=== PATIENT | male | born 1945 | race Caucasian/White ===

== ENCOUNTER 2017-03-13 07:52 | Day surgery (SDC) | payer OTHER ==
[2017-03-13] VITALS (11 sets, daily range): BP systolic 120–139; BP diastolic 77–82; PULSE 64–83; RESP 16; TEMP 97.8–98.5; O2SAT 95–97
[~2017-03-13] VITALS: Ht 154.4 cm; Wt 88.5 kg
[~2017-03-13 07:52] MED LIST: ASPI81TA21 PO; BRIL90TA PO; COZA100T PO; GEMF600 PO; GLIM2TAB PO; GLUC1000 PO; IMDU30TA PO; METO100T9 PO; PARO20 PO; SIMV20 PO
[2017-03-13] MEDS ORDERED: IOHEXOL 350 MG/ML 100 ML BTL (for Cath Lab) OTHER ONE (07:53)
[2017-03-13] MEDS ORDERED: IOHEXOL 350 MG/ML 50 ML BTL (for Cath Lab) OTHER ONE (07:53)
[2017-03-13] MEDS: SODIUM CHLOR 0.9% 1000 ML INJ 1,000 ML IV SCH ×2 (08:15→13:00)
[2017-03-13] MEDS ORDERED: LOSA100T PO (08:31)
[2017-03-13] MEDS ORDERED: ASPI81CH CHEW (08:31)
[2017-03-13] MEDS ORDERED: METO25TA6 PO (08:31)
[2017-03-13] MEDS ORDERED: GLIM2TAB PO (08:31)
[2017-03-13] MEDS ORDERED: LEVEMIR SQ ×2 (08:31→08:36)
[2017-03-13] MEDS ORDERED: SIMV20TA PO (08:31)
[2017-03-13] MEDS ORDERED: BRIL90TA PO (08:31)
[2017-03-13] MEDS ORDERED: GEMF600 PO (08:31)
[2017-03-13] MEDS ORDERED: PAXI10TA2 PO (08:31)
[2017-03-13] MEDS ORDERED: NITR0.4S SL (08:31)
[2017-03-13] MEDS ORDERED: ISOS30TA3 PO (08:31)
[2017-03-13 08:43] LABS: AUTOMATED NEUTROPHIL # 1.1 TH/MM3 (1.8-7.7); BASOPHIL % 0.8 % (0.0-2.0); EOSINOPHIL # 0.1 TH/MM3 (0-0.4); EOSINOPHIL % 2.2 % (0.0-4.0); HEMATOCRIT 42.3 % (39.0-51.0); HEMO FLAGS DIFF FINAL; LYMPH % 41.2 % (9.0-44.0); MEAN CELL VOLUME 90.3 FL (80.0-100.0); MEAN CORPUSCULAR HEMOGLOBIN 30.6 PG (27.0-34.0); MEAN CORPUSCULAR HGB CONC 33.9 % (32.0-36.0); MONO % 10.2 % (0.0-8.0); NEUT % 45.6 % (16.0-70.0); PLATELET COUNT 109 TH/MM3 (150-450); RED BLOOD COUNT 4.68 MIL/MM3 (4.50-5.90); RED CELL DISTRIBUTION WIDTH 13.2 % (11.6-17.2); WHITE BLOOD COUNT 2.3 TH/MM3 (4.0-11.0)
[2017-03-13 08:53] LABS: PROTHROMBIN TIME - PATIENT 11.1 SEC (9.8-11.6)
[2017-03-13 08:54] LABS: BICARBONATE 27.5 MEQ/L (21.0-32.0); POTASSIUM 4.3 MEQ/L (3.5-5.1)
[2017-03-13] MEDS ORDERED: HEPARIN-NS/PF INJ 1,000 ML ONE (09:47)
[2017-03-13] MEDS ORDERED: MIDAZOLAM HCL 2 MG/2 ML VIAL ONE (09:48)
[2017-03-13] MEDS ORDERED: VERAPAMIL HCL 5 MG/2 ML VIAL ONE (09:56)
[2017-03-13] MEDS ORDERED: HEPARIN SODIUM - IV 10,000 UNITS/10 ML VIAL ONE (09:57)
[2017-03-13] MEDS ORDERED: NITROGLYCERIN INJ 5 ML ONE (09:58)
[2017-03-13] MEDS ORDERED: MORPHINE SULFATE 4 MG/ML INJ IV PUSH PRN (12:15)
[2017-03-13] MEDS ORDERED: oxyCODONE/ACETAMINOPHEN 10 MG/325 MG TAB PO PRN (12:15)
[2017-03-13] MEDS ORDERED: MISC INFORMATION XX ONE (12:15)
[2017-03-13] MEDS ORDERED: ACETAMINOPHEN 325 MG TAB PO PRN (12:15)
[2017-03-13] MEDS ORDERED: ONDANSETRON HCL 4 MG/2 ML VIAL IVP PRN (12:15)
[2017-03-13] MEDS ORDERED: NITROGLYCERIN 0.4 MG SL 25 TABS/BTL SL PRN (12:15)
[2017-03-13] MEDS ORDERED: oxyCODONE/ACETAMINOPHEN 5 MG/325 MG TAB PO PRN (12:15)
--- NOTE | 2017-03-13 14:39 | EKG ---
Date Performed: 03/13/2017 Time Performed: 08:38:20 PTAGE: 71 years EKG: Sinus rhythm Leftward axis Borderline ECG PREVIOUS TRACING : 01/18/2015 15.17 Compared to prior tracing no significant change DOCTOR: Melanie Mendieta Interpretating Date/Time 03/13/2017 14:37:55
--- NOTE | 2017-03-13 20:44 | MA ---
cc: JESSE STORM DO DATE March 13, 2017 PROCEDURE Left heart catheterization, coronary angiogram, ultrasound-guided radial access, Juancarlos drug-eluting stent (3 x 22) to the RCA, moderate sedation 100 minutes. PREPROCEDURE DIAGNOSIS 1. Unstable angina on multiple anti-anginal medications. 2. Coronary artery disease. POSTPROCEDURE DIAGNOSIS Coronary artery disease/unstable angina status post [place] drug-eluting stent (3 x 22) to the RCA. MEDICATIONS 1. Verapamil 2.5 milligrams. 2. Heparin 8900 units. 3. Nitro 200 micrograms. 4. Versed 1 milligram. 5. Fentanyl 50 micrograms. CONTRAST USED 130 cc. FLUOROSCOPY 32.7 minutes. MODERATE SEDATION 100 minutes. ESTIMATED BLOOD LOSS 20 cc. PROCEDURAL SUMMARY Adi Corral is a pleasant 71-year-old male who sees my partner, Dr. Norris, in the office and was noted to have chest pain with minimal exertion similar to when he needed a stent. Because he is on multiple antianginals already as well as the significance of his chest pain it seemed reasonable to forego a stress test as he is high risk. Risks, benefits and alternatives were explained to him and he consented as such. He was brought to the lab and prepped in the usual sterile fashion. Right radial artery was accessed using a modified Seldinger technique and placement of a 5/6 [place] slender sheath under ultrasound guidance. This was easily aspirated and flushed. A JR-4 was advanced over a J-wire but unable to cross the aortic valve into the left ventricle. JR-4 was used for selective angiography of the right coronary artery. This was exchanged out for a JL-3.5 which was used for selective angiography of the left coronary artery. Please see below for interventional notes. Postprocedure the patient had a radial band placed over his arteriotomy site for hemostasis. The patient left the color laboratory technician cardiovascularly stable. FINDINGS Left main: Normal size vessel with adequate reflux. 10% disease distally. It trifurcates into an LAD ramus and left circumflex. LAD: Normal size vessel with mild luminal irregularities throughout. After the takeoff of the first diagonal there is a 40-50% stenosis in the midportion but this is similar to his previous cardiac catheterization 2 years ago. Ramus: Exceptionally small vessel which seems to be subtotally occluded in the ostium. Left circumflex normal size vessel with mild luminal irregularities throughout the proximal portion. It gives off one major obtuse marginal which has an upper and lower branch and no significant disease throughout. RCA: Normal size vessel with tandem lesions in the midportion of 80 and 90%. There is an RV branch which is subtotally occluded. It comes off in the middle of this disease which looks similar to 2015. He also has a 40% distal PDA as well as a 99% small distal PLV which looks similar to 2015. LVEDP 10. INTERVENTION In comparing his cardiac catheterization from now and 2014 it appears that the only significant is the mid RCA with tandem lesions. Because of this the patient was given heparin with a plan to intervene on the mid RCA. A JR-4 guide was engaged into the right coronary artery. A BMW wire was advanced into the distal portion of the RCA. A compliant balloon (2.5 x 15) was then used to predilate the lesions. This was exchanged out for an [place] drug-eluting stent (3 x 22) which was then placed over both lesions and inflated. A noncompliant balloon (3 x 12) was then used to post dilate the stent. During this the subtotally occluded RV branch was lost. A noncompliant balloon (3.25 x 8) was then used to further dilate the stent for apposition. The lost RV branch I attempted to recannulate with a BMW wire and then a run through wire. I was able to get into the proximal portion of it but unable to further advance my wire as it appears that this is subtotally occluded. I felt that a more aggressive wire had a high-risk perforating this for very little advantage as the patient was chest pain free and hemodynamically stable. The JR-4 guide was removed and exchanged for a pigtail which was advanced into the left ventricle for measurement of left ventricular pressure. IMPRESSION 1. Unstable angina. 2. Coronary artery disease status post Juancarlos drug-eluting stent (3 x 22) to the mid RCA. RECOMMENDATIONS 1. Mr. Corral underwent stenting of his RCA with an [place] drug-eluting stent. Because of this he will continue on his aspirin and Brilinta therapy. 2. We will plan to continue him on his beta clay, Imdur, statin and ARB therapy. 3. He will be watched overnight and if stable discharged in the morning. 4. Upon discharge he will follow up with Dr. Norris in the next few weeks. Thank you for allowing me to see Adi Corral. If there are any questions please do not hesitate to call. Jesse Storm DO VGP/EO /5:47 PM /8:31 PM MTDCk
[2017-03-13] MEDS: TICAGRELOR 90 MG TAB PO SCH (21:19)
[2017-03-13] MEDS ORDERED: ZOLPIDEM TARTRATE 5 MG TAB PO ONE (21:45)
[2017-03-14] VITALS (12 sets, daily range): BP systolic 122–145; BP diastolic 77–78; PULSE 62–72; RESP 16; TEMP 97.6–97.8; O2SAT 96
[2017-03-14 06:56] LABS: AUTOMATED NEUTROPHIL # 1.2 TH/MM3 (1.8-7.7); BASOPHIL % 0.6 % (0.0-2.0); EOSINOPHIL % 2.1 % (0.0-4.0); LYMPH % 37.6 % (9.0-44.0); LYMPHOCYTE # 0.9 TH/MM3 (1.0-4.8); MEAN CELL VOLUME 89.7 FL (80.0-100.0); MEAN CORPUSCULAR HEMOGLOBIN 31.1 PG (27.0-34.0); MEAN CORPUSCULAR HGB CONC 34.6 % (32.0-36.0); MONO % 9.1 % (0.0-8.0); NEUT % 50.6 % (16.0-70.0); PLATELET COUNT 95 TH/MM3 (150-450); RED BLOOD COUNT 4.35 MIL/MM3 (4.50-5.90); RED CELL DISTRIBUTION WIDTH 13.5 % (11.6-17.2); WHITE BLOOD COUNT 2.3 TH/MM3 (4.0-11.0)
[2017-03-14 06:58] LABS: HEMO FLAGS AUTO DIFF
[2017-03-14 07:00] LABS: BICARBONATE 26.9 MEQ/L (21.0-32.0); POTASSIUM 3.7 MEQ/L (3.5-5.1)
[2017-03-14 07:56] LABS: PLATELET ESTIMATE SMEAR LOW (NORMAL); PLATELET MORPHOLOGY NORMAL (NORMAL); SCAN/DIFF AUTO DIFF CONFIRMED
[2017-03-14] MEDS: SODIUM CHLOR 0.9% 1000 ML INJ 1,000 ML IV SCH ×2 (08:15→08:53)
[2017-03-14] MEDS: TICAGRELOR 90 MG TAB PO SCH (08:51)
[2017-03-14] MEDS ORDERED: LOSARTAN 50 MG TAB PO SCH (09:00)
[2017-03-14] MEDS ORDERED: GLIMEPIRIDE 2 MG TAB PO SCH (09:00)
[2017-03-14] MEDS ORDERED: ASPIRIN 81 MG CHEW TAB CHEW SCH (09:00)
[2017-03-14] MEDS ORDERED: PRAVASTATIN SOD 40 MG TAB PO SCH (09:00)
[2017-03-14] MEDS ORDERED: PARoxetine HCL 20 MG TAB PO SCH (09:00)
[2017-03-14] MEDS ORDERED: METOPROLOL SUCCINATE 25 MG EXTENDED RELEASE TAB PO SCH (09:00)
[2017-03-14] MEDS ORDERED: INSULIN DETEMIR 100 UNITS/ML VIAL SQ SCH (09:00)
[2017-03-14] MEDS ORDERED: ISOSORBIDE MONONITRATE 30 MG TAB PO SCH (09:00)
--- NOTE | 2017-03-14 09:44 | PD.CARD.PN ---
Subjective Subjective Remarks Doing well, no complaints No chest pain/SOB Objective Medications Current Medications Medications (Trade) Dose Ordered Sig/Connie Route Start Time Stop Time Status Last Admin Sodium Chloride 1,000 ml @ 30 mls/hr Q24H IV 03/13/17 08:15 Sodium Chloride 1,000 ml @ 50 mls/hr Q20H IV 03/13/17 13:00 03/14/17 12:59 03/14/17 08:53 (Tylenol) 325 mg Q4H PRN PO 03/13/17 12:15 (Percocet 5-325 Mg) 1 tab Q4H PRN PO 03/13/17 12:15 (Percocet 10-325 Mg) 1 tab Q4H PRN PO 03/13/17 12:15 (Morphine Inj) 2 mg Q30M PRN IV PUSH 03/13/17 12:15 (Zofran Inj) 4 mg Q6H PRN IVP 03/13/17 12:15 (Aspirin Chew) 81 mg DAILY CHEW 03/14/17 09:00 03/14/17 08:50 (Amaryl) 2 mg DAILY PO 03/14/17 09:00 03/14/17 08:50 (Levemir Inj) 70 units DAILY SQ 03/14/17 09:00 03/14/17 08:52 (Imdur) 30 mg DAILY PO 03/14/17 09:00 03/14/17 08:50 (Cozaar) 100 mg DAILY PO 03/14/17 09:00 03/14/17 08:51 (Toprol Xl) 25 mg DAILY PO 03/14/17 09:00 03/14/17 08:50 (Nitrostat Sl) 0.4 mg Q5M PRN SL 03/13/17 12:15 (Brilinta) 90 mg BID PO 03/13/17 21:00 03/14/17 08:51 (Paxil) 20 mg DAILY PO 03/14/17 09:00 03/14/17 08:50 (Pravachol) 40 mg DAILY PO 03/14/17 09:00 03/14/17 08:50 Vital Signs / I&O Vital Signs Date Time Temp Pulse Resp B/P (MAP) Pulse Ox O2 Delivery O2 Flow Rate FiO2 03/14/17 06:05 69 03/14/17 05:06 70 03/14/17 04:16 97.8 70 145/78 (100) 96 03/14/17 04:00 71 03/14/17 03:00 66 03/14/17 02:00 62 03/14/17 01:00 64 03/14/17 00:00 70 03/13/17 23:00 97.9 66 120/77 (91) 96 03/13/17 23:00 66 03/13/17 22:00 64 03/13/17 21:00 68 03/13/17 20:00 98.5 67 136/80 (98) 95 03/13/17 20:00 70 03/13/17 19:00 73 03/13/17 18:13 81 03/13/17 17:04 71 03/13/17 16:02 75 03/13/17 15:14 75 03/13/17 15:14 97.8 75 16 139/82 (101) 95 03/13/17 14:10 78 03/13/17 12:38 95 Room Air I/O 03/13/17 03/13/17 03/13/17 03/14/17 03/14/17 03/14/17 07:00 15:00 23:00 07:00 15:00 23:00 Intake Total 603 ml 980 ml Output Total 1050 ml Balance 603 ml -70 ml Intake Oral 480 ml 480 ml IV Total 123 ml 500 ml Output Urine Total 1050 ml # Voids 2 # Bowel Movements 1 Physical Exam GENERAL: NAD, AAOx3 SKIN: Warm and dry. HEAD: Atraumatic. Normocephalic. EYES: Pupils equal and round. No scleral icterus. No injection or drainage. ENT: No nasal bleeding or discharge. Mucous membranes pink and moist. NECK: Trachea midline. No JVD. CARDIOVASCULAR: Regular rate and rhythm. No murmurs noted RESPIRATORY: No accessory muscle use. Clear to auscultation. Breath sounds equal bilaterally. GASTROINTESTINAL: Abdomen soft, non-tender, nondistended. Hepatic and splenic margins not palpable. MUSCULOSKELETAL: Extremities without clubbing, cyanosis, or edema. No obvious deformities. Right radial no hematoma, neurovascularly intact distally NEUROLOGICAL: Awake and alert. No obvious cranial nerve deficits. Motor grossly within normal limits. Five out of 5 muscle strength in the arms and legs. Normal speech. PSYCHIATRIC: Appropriate mood and affect; insight and judgment normal. Laboratory Laboratory Tests Test 03/14/17 05:50 White Blood Count 2.3 TH/MM3 Red Blood Count 4.35 MIL/MM3 Hemoglobin 13.5 GM/DL Hematocrit 39.0 % Mean Corpuscular Volume 89.7 FL Mean Corpuscular Hemoglobin 31.1 PG Mean Corpuscular Hemoglobin Concent 34.6 % Red Cell Distribution Width 13.5 % Platelet Count 95 TH/MM3 Mean Platelet Volume 8.9 FL Neutrophils (%) (Auto) 50.6 % Lymphocytes (%) (Auto) 37.6 % Monocytes (%) (Auto) 9.1 % Eosinophils (%) (Auto) 2.1 % Basophils (%) (Auto) 0.6 % Neutrophils # (Auto) 1.2 TH/MM3 Lymphocytes # (Auto) 0.9 TH/MM3 Monocytes # (Auto) 0.2 TH/MM3 Eosinophils # (Auto) 0.0 TH/MM3 Basophils # (Auto) 0.0 TH/MM3 CBC Comment AUTO DIFF Differential Comment AUTO DIFF CONFIRMED Platelet Estimate LOW Platelet Morphology Comment NORMAL Blood Urea Nitrogen 15 MG/DL Creatinine 0.86 MG/DL Random Glucose 263 MG/DL Calcium Level 8.8 MG/DL Sodium Level 137 MEQ/L Potassium Level 3.7 MEQ/L Chloride Level 101 MEQ/L Carbon Dioxide Level 26.9 MEQ/L Anion Gap 9 MEQ/L Estimat Glomerular Filtration Rate 88 ML/MIN Assessment and Plan Problem List: (1) CAD (coronary artery disease) ICD Codes: I25.10 - CAD (coronary artery disease) Status: Acute (2) Diabetes ICD Codes: E11.9 - Type 2 diabetes mellitus without complications (3) HTN (hypertension) ICD Codes: I10 - Essential (primary) hypertension (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 Norris on discharge Jesse Gonzalez DO Mar 14, 2017 09:44
--- NOTE | 2017-03-14 09:47 | HHI.DS ---
Discharge Summary Admission Date Discharge Date: Mar 14, 2017 Admitting Diagnosis 1) Unstable angina 2) HTN 3) DM 4) CAD (1) CAD (coronary artery disease) Diagnosis: Principal ICD Codes: I25.10 - CAD (coronary artery disease) Status: Acute (2) Diabetes Diagnosis: Secondary ICD Codes: E11.9 - Type 2 diabetes mellitus without complications (3) HTN (hypertension) Diagnosis: Secondary ICD Codes: I10 - Essential (primary) hypertension Brief History Unstable angina. Underwent cardiac catheterization and intervention of the RCA with an Juancarlos GULSHAN (3x22). CBC/BMP: 03/14/17 0550 03/14/17 0550 Significant Findings Laboratory Tests Test 03/13/17 08:24 03/14/17 05:50 White Blood Count 2.3 TH/MM3 (4.0-11.0) 2.3 TH/MM3 (4.0-11.0) Platelet Count 109 TH/MM3 (150-450) 95 TH/MM3 (150-450) Monocytes (%) (Auto) 10.2 % (0.0-8.0) 9.1 % (0.0-8.0) Neutrophils # (Auto) 1.1 TH/MM3 (1.8-7.7) 1.2 TH/MM3 (1.8-7.7) Blood Urea Nitrogen 20 MG/DL (7-18) Random Glucose 300 MG/DL (74-106) 263 MG/DL (74-106) Sodium Level 135 MEQ/L (136-145) Estimat Glomerular Filtration Rate 75 ML/MIN (>89) 88 ML/MIN (>89) Red Blood Count 4.35 MIL/MM3 (4.50-5.90) Lymphocytes # (Auto) 0.9 TH/MM3 (1.0-4.8) Platelet Estimate LOW (NORMAL) Pt Condition on Discharge: Good Discharge Disposition: Discharge Home Discharge Instructions DIET: Follow Instructions for: Heart Healthy Diet Activities you can perform: See Additionl Instruction Additional Activity Instructio: No lifting more than 10 lbs for 3 days Jesse Gonzalez DO Mar 14, 2017 09:47
== END 2017-03-14 10:44 | disposition home or self-care (01) ==
LOC: HDIC 07:52 → HDOC 07:52 → HCIS 14:05 → HDOC 03-14 10:44
PROVIDERS: ATTEND Nuclear Medicine Nuclear Cardiology
DX: I25.110 Atherosclerotic heart disease of native coronary artery with unstable angina pectoris (principal); I10 Essential (primary) hypertension; E78.5 Hyperlipidemia, unspecified; E11.9 Type 2 diabetes mellitus without complications; Z95.5 Presence of coronary angioplasty implant and graft; Z87.891 Personal history of nicotine dependence; Z79.01 Long term (current) use of anticoagulants; Z79.82 Long term (current) use of aspirin; Z79.899 Other long term (current) drug therapy; Z79.4 Long term (current) use of insulin
CPT/HCPCS: 80048; 85002; 85025; 85610; 85730; 92928; 93005; 93458; C1725; C1769; C1874; C1887; C1893; J1644; J2250; J3010; J7030; 93454; Q9967

== ENCOUNTER 2017-09-25 06:46 | Day surgery (SDC) | payer OTHER ==
[~2017-09-25] VITALS: Ht 172.7 cm; Wt 90.9 kg
[~2017-09-25 06:46] MED LIST changes: +ASPI-516 CHEW; -ASPI81TA21 PO; -COZA100T PO; -GLUC1000 PO; -IMDU30TA PO; +ISOS30TA3 PO; +LEVEMIR SQ; +LOSA100T PO; -METO100T9 PO; +METO1TAB42 PO; +NITR0.4S SL; -PARO20 PO; +PAXI10TA8 PO; -SIMV20 PO; +SIMV20TA PO
[2017-09-25] MEDS ORDERED: IOHEXOL 350 MG/ML 100 ML BTL (for Cath Lab) OTHER ONE (06:47)
[2017-09-25 07:00] VITALS: BP 139/81; PULSE 96; RESP 16; TEMP 99.1; O2SAT 95
[2017-09-25] MEDS ORDERED: CLOP75TA PO (07:29)
[2017-09-25 07:32] LABS: AUTOMATED NEUTROPHIL # 1.8 TH/MM3 (1.8-7.7); BASOPHIL % 0.7 % (0.0-2.0); EOSINOPHIL # 0.1 TH/MM3 (0-0.4); EOSINOPHIL % 2.1 % (0.0-4.0); HEMOGLOBIN 14.4 GM/DL (13.0-17.0); LYMPH % 36.6 % (9.0-44.0); LYMPHOCYTE # 1.3 TH/MM3 (1.0-4.8); MEAN CELL VOLUME 89.8 FL (80.0-100.0); MEAN CORPUSCULAR HEMOGLOBIN 30.9 PG (27.0-34.0); MEAN CORPUSCULAR HGB CONC 34.3 % (32.0-36.0); MEAN PLATELET VOLUME 8.4 FL (7.0-11.0); MONO % 8.9 % (0.0-8.0); MONOCYTE # 0.3 TH/MM3 (0-0.9); NEUT % 51.7 % (16.0-70.0); PLATELET COUNT 134 TH/MM3 (150-450); RED BLOOD COUNT 4.67 MIL/MM3 (4.50-5.90); RED CELL DISTRIBUTION WIDTH 13.3 % (11.6-17.2); WHITE BLOOD COUNT 3.4 TH/MM3 (4.0-11.0)
[2017-09-25 07:40] LABS: PROTHROMBIN TIME - PATIENT 10.3 SEC (9.8-11.6)
[2017-09-25 07:53] LABS: BICARBONATE 24.8 MEQ/L (21.0-32.0); CALCIUM 9.8 MG/DL (8.5-10.1); CREATININE 1.06 MG/DL (0.60-1.30)
[2017-09-25] MEDS ORDERED: NS 1000P @30 MLS/HR (KVO) IV SCH (08:00)
[2017-09-25] MEDS ORDERED: HEPARIN-NS/PF FLUSH BAG 2,000 ML IV FLUSH ONE (08:14)
[2017-09-25] MEDS ORDERED: MIDAZOLAM HCL 2 MG/2 ML VIAL ONE (08:15)
[2017-09-25] MEDS ORDERED: HEPARIN SODIUM - IV 10,000 UNITS/10 ML VIAL ONE (08:15)
[2017-09-25] MEDS ORDERED: VERAPAMIL HCL 5 MG/2 ML VIAL ONE (08:15)
[2017-09-25] MEDS ORDERED: NITROGLYCERIN INJ 5 ML ONE (08:17)
--- NOTE | 2017-09-25 09:46 | CATHPROC ---
FAZUA HIS Report Study Information Study Number Admission Scheduled Start Study Start [id number] Sep 25 2017 6:46AM 09/25/2017 Sep 25 2017 8:10AM [place] [facility] Cardiac Catheterization Admit Source Facility Department Other [facility] - Operating Room Orderly Physician and Clinical Staff Initial Jesse Torres Doll Maker Forest Broderick,RN Doll Maker Mikey Mohamud,GENESIS Recorder Jayshree Cortez ,RT(R) Scrub Gideon Schmidt RCIS(BS) Procedures Performed Procedure Location (Site) Vessel Name Coronary Angiograms LCA Left Coronary Coronary Angiograms RCA Right Coronary L Heart Cath PTCA RCA Mid Right Coronary Wire insertion Radial (right) Radial Art. Equipment Time Radiologic Technology Program Director Description Size Mfg Part Number Used/Scraped WIRE, BALANCE MIDDLEWEIGHT [id number] 09:00 [employer] 190CM Used 190CM *[id number] TRANSDUCER, TRUWAVE [id number] 08:25 CEJA CORTES * Used W/STOCKCOCK *[id number] BALLOON, 3.0 6MM FLEXTOME [id number] 09:23 [employer] 3.0 6MM Used CUTTING *[id number] [phone] *[id number] 534-520T *[id number] [phone] *[id number] 534-521T *[id number] 08:25 [employer] PACK, CCL CUSTOM * Used *[id number] 08:25 [employer] SUPPORT, ARTERIAL ADULT [id number] *[id number] Used BALLOON, 3.0 X 6MM NC [id number] 09:27 [employer] 6MM Used EUPHORA *[id number] 09:25 [employer] 30 PEDRO INDEFLATOR Used *[id number] BAND, RADIAL COMPRESSION TR [id number] 09:35 [employer] MEDICAL 24CM Used SHORT 24 *[id number] 08:25 [employer] WIRE, EXCHANGE 260CM 3MMJ 260CM Used *[id number] 08:25 NAMIC MANIFOLD, 4 PORT * Used *[id number] 08:25 [employer]COM[employer] OMNIPAQUE, 350 MG, 150ML 150ML [id number] Used [id number] 08:25 [employer] BLANKET,WARM AIR CCL * Used *[id number] 110-004 09:13 [employer] CATHETER, ELCA 0.9MM X-80 150CM Used *[id number] SHEATH, FR6 TRANSRADIAL RM*[id number] 08:25 [employer] FR 6 Used SLENDER 10CM *[id number] Equipment Model, Serial, Lot Number and Expiration Data Description Model Number Serial Number Lot Number Expiration Date BALLOON, 3.0 X 6MM NC VANESSA [id number] 07-19-2019 BALLOON, 3.0 6MM FLEXTOME [id number] 12-08-2018 CUTTING CATHETER, ELCA 0.9MM X-80 [id number] 06-05-2019 History: Current Medications Medication Dosage/Unit Route Frequency Last Date/Time Taken ASA NTG SL PLAVIX Gemfibrozil COZAAR Paxil History: Allergies Allergy Reaction niacin History: Risk Factors Family History of Hypertension Dyslipidemia Previous NE Previous Heart Failure Premature CAD Yes Yes Yes No No Prior Valve Prior PCI Prior PCIDate Prior CABG Surgery No Yes 03/14/2017 No Cerebrovascular Peripheral Artery Chronic Lung On Dialysis Diabetes Diabetes Therapy Disease Disease Disease No No No No Yes Insulin History: Other Current Smoker Method Quit Packs a Day Years Used Pack Years No Cigarettes 40 Years Ago 1 8 8 Labs Hgb (g/dl) Hct (%) WBC (l/cumm) Platelets (thousands) 11.60-17.00 35.00-51.00 4.00-11.00 150.00-450.00 14.4 42 3.4 134 Glucose (mg/dl) BUN (mg/dl) Creatinine (mg/dl) BUN:Creatinine (1:x) 74.00-106.00 7.00-18.00 0.50-1.30 10.00-20.00 269 19 1.0 19 Na (meq/l) K (meq/l) 136.00-145.00 3.50-5.10 139 4.3 INR (PTT:PT) 0.90-1.10 1 CPK-MB (ng/ML) 0.50-3.60 Not Drawn Medication Medication Total Dose (Bolus/Oral) Medication Total Dosage/Unit 1% XYLOCAINE 10 mL FENTANYL 25 mcg HEPARIN 5400 units RADIAL COCKTAIL 5 mL (Bolus) VERSED 0.5 mg Medications (Bolus/Oral) Medication Time Given Dosage/Unit Administered By Reason VERSED 09/25/2017 8:44:59 AM 0.5 mg Forest Broderick 0.5 mg VERSED given in lab by Forest Broderick RN in Left Antecubital via Peripheral IV. Ordered by Jesse Cox FENTANYL 09/25/2017 8:45:10 AM 25 mcg Forest Broderick 25 mcg FENTANYL given in lab by Forest Broderick RN in Left Antecubital via Peripheral IV. Ordered by Jesse Ryan 1% XYLOCAINE 09/25/2017 8:45:40 AM 10 mL Jesse Gonzalez 10 mL 1% XYLOCAINE given in lab by Jesse Gonzalez in Right Radial via Subcutaneous. Ordered by Jesse Oliveira Ntg 200mcg Verapamil 2.5mg Heparin RADIAL COCKTAIL 09/25/2017 8:47:53 AM 5 mL (Bolus) Jesse Gonzalez 3000U 5 mL (Bolus) RADIAL COCKTAIL given in lab by Jesse Gonzalez via Radial. Using [Solution Name]. O rdered by Jesse Gonzalez Reason: Ntg 200mcg Verapamil 2.5mg Heparin 3600U. HEPARIN 09/25/2017 9:07:29 AM 5400 units Forest Broderick 5400 units HEPARIN given in lab by Forest Broderick RN in Left Antecubital via Peripheral IV. Ordered by Jesse Gonzalez Medication (Drip) Medication Time Given Dosage/Unit Concentration/Unit Diluent (ml) Solution IV Solutions 09/25/2017 8:18:19 AM 50 mL (IV) NaCl .9 Patient arrived on IV Solutions in Left Antecubital via Peripheral IV. Pump/Drip Flow using NaCl .9. Initial Case Assessment Cardiovascular HR Rhythm NIBP Chest Pain 86 sr 121/80 0 Edema Present Skin color Skin None Normal Warm Dry Circulatory - Right Pulses Dorsalis Pedis Femoral Radial 2 2 2 Scale (0,1,2,3,4,d) Circulatory - Left Pulses Dorsalis Pedis Femoral Radial 2 2 Scale (0,1,2,3,4,d) Circulatory - Lower Extremities Color Lower Right Color Lower Left Normal Normal Neurological State Oriented to time-place- Alert Moves all extremities person Respiration - General Respiration Rate SpO2 (%) (B/min) 15 96 Final Case Assessment Cardiovascular HR Rhythm NIBP Chest Pain 86 sr 121/80 0 Edema Present Skin color Skin None Normal Warm Dry Circulatory - Right Pulses Dorsalis Pedis Femoral Radial 2 2 2 Scale (0,1,2,3,4,d) Circulatory - Left Pulses Dorsalis Pedis Femoral Radial 2 2 Scale (0,1,2,3,4,d) Circulatory - Lower Extremities Color Lower Right Color Lower Left Normal Normal Neurological State Oriented to time-place- Alert Moves all extremities person Respiration - General Respiration Rate SpO2 (%) (B/min) 15 96 Chronological Log Time Study Chronological Log 8:10:04 Patient arrived via Bed. 8:10:05 Patient Name, D.O.B, / Armband Verified By R.N. 8:18:01 Consent signed by the physician and the patient and verified by the Operating Room Orderly staff. 8:18:02 Pre-op and post- op instructions given; patient acknowledges understanding of instructions. 8:18:02 Verbal Stimulation=2 Physical Stimulation=2 Airway=2 Respiration=2 TOTAL=8. (0=absent, 1=li mited, 2=present) 8:18:09 Allens test performed on the right radial and ulnar artery. Positive 8:18:12 Patient has been NPO for More than 6Hrs. 8:18:13 Skin Breakdown- none per patient 8:18:16 Patient Warmer Placed on the Table. 8:18:17 Melecio Prominences Protected 8:18:18 A # 20 IV was noted in the Antecubital (left). Grade = 0 8:18:19 Patient arrived on IV Solutions in Left Antecubital via Peripheral IV. Pump/Drip Flow using NaCl .9. 8:18:19 History and physical on the chart or being dictated. Assessment: Initial Case, HR=86 BPM, Rhythm=sr, NAGD=921/80 mmhg, Chest Pain=0, Edema=None, [place] r=Normal, Skin = Warm, Dry Right Pulses: Rodney Ped=2, Femoral=2, Radial=2 Left Pulses: Rodney Ped=2, Femoral=2 8:18:22 Lower Right Extremities: Color=Normal Lower Left Extremities: Color=Normal Neurological: State=Alert, Ox3, HAGER Respiration: Resp=15 B/min, SpO2=96 % Vitals capture started with the following parameters, Patient=Adult, Interval=5 min, Initial Pre ehcdd=287 mmHg, 8:19:39 Deflation Rate=5 mmHg, Cuff placed on Left Arm 8:20:11 HR=94 bpm, SAVY=347/86 mmhg, SpO2=96.0 %, Resp=23 B/min, Pain=0, Justen=10, Avila=2 8:25:14 HR=87 bpm, NKRP=922/80 mmhg, SpO2=95.0 %, Resp=12 B/min, Pain=0, Justen=10, Avila=2 8:26:29 Reference ECG taken 8:27:16 Right Radial and groin(s) prepped with 2% chlorhexidine, and draped after a 3 min. waiting t pedro pablo. 8:28:25 MD paged 8:30:11 HR=84 bpm, PART=165/85 mmhg, SpO2=93.0 %, Resp=19 B/min, Pain=0, Justen=10, Avila=2 8:34:35 MD arrived. 8:35:18 HR=88 bpm, IZJS=460/68 mmhg, SpO2=94.0 %, Resp=13 B/min, Pain=0, Justen=10, Avila=2 8:35:28 Pressure channel 1 zeroed. 8:40:17 HR=88 bpm, YOTI=659/76 mmhg, SpO2=92.0 %, Resp=20 B/min, Pain=0, Justen=10, Avila=2 Time Out. Correct patient, correct procedure, correct physician, power injector loaded, or not l oaded with contrast with 8:42:27 surgical team present. Time Out Concurred by MD and individual staff in procedure. 8:43:35 Case Start 8:44:59 0.5 mg VERSED given in lab by Forest Broderick RN in Left Antecubital via Peripheral IV. Ordere d by Jesse Gonzalez. 25 mcg FENTANYL given in lab by Forest Broderick, GENESIS in Left Antecubital via Peripheral IV. Ordered by Jesse Gonzalez 8:45:10 G. 8:45:19 HR=83 bpm, YQZJ=676/83 mmhg, SpO2=93.0 %, Resp=16 B/min, Pain=0, Justen=10, Avila=2 10 mL 1% XYLOCAINE given in lab by Jesse Gonzalez in Right Radial via Subcutaneous. Ordered by Carlos 8:45:40 Jesse Ahumada 8:46:18 Access site was Right Radial Artery. A SHEATH, FR6 TRANSRADIAL SLENDER 10CM FR 6 was advanced into the Radial (right) using the Gabrieleu tanfred 8:46:31 technique. 5 mL (Bolus) RADIAL COCKTAIL given in lab by Jesse Gonzalez via Radial. Using [Solution Nam e]. Ordered by 8:47:53 Jesse Gonzalez. Reason: Ntg 200mcg Verapamil 2.5mg Heparin 3600U. A JR 4.0 INFINITI CATHETER FR 5 was advanced over a wire. OMNIPAQUE, 350 MG, 150ML 150ML was use d for 8:47:58 injections. 8:50:18 HR=89 bpm, WNXP=162/64 mmhg, SpO2=90.0 %, Resp=13 B/min, Pain=0, Justen=10, Avila=2 Recorded Pressure: LV, HR=92, Condition=Condition 1 8:51:23 (Left Ventricle) LV 111/4/8 Recorded Pressure: LV, Ao, HR=92, Condition=Condition 1 8:51:35 (Left Ventricle) LV 109/4/7, (Aorta) Ao 94/56/72 8:52:16 The RCA was injected and visualized at various angles. OMNIPAQUE, 350 MG, 150ML 150ML used. After removing the current catheter a JL 4.0 INFINITI CATHETER FR 5 was advanced over a WIRE, EX CHANGE 260CM 8:54:14 3MMJ 260CM. 8:55:15 HR=86 bpm, DLQE=176/77 mmhg, SpO2=89.0 %, Resp=18 B/min, Pain=0, Justen=10, Avila=2 8:56:44 The LCA was injected and visualized at various angles. OMNIPAQUE, 350 MG, 150ML 150ML used. 8:58:26 Catheter was removed A JR 4.0 GUIDE CATHETER FR 6 was advanced over a wire. OMNIPAQUE, 350 MG, 150ML 150ML was used f or 8:58:40 injections. 9:00:53 HR=87 bpm, YGBE=856/80 mmhg, SpO2=91.0 %, Resp=22 B/min, Pain=0, Justen=10, Avila=2 9:04:46 Catheter was removed A [facility] GUIDE CATHETER FR 6 was advanced over a wire. OMNIPAQUE, 350 MG, 150ML 150ML was used for 9:04:59 injections. 9:05:19 HR=86 bpm, XBJY=361/78 mmhg, SpO2=91.0 %, Resp=20 B/min, Pain=0, Justen=10, Avila=2 5400 units HEPARIN given in lab by Forest Broderick, RN in Left Antecubital via Peripheral IV. Order ed by Jesse Gonzalez 9:07:29 G. 9:09:13 A WIRE, BALANCE MIDDLEWEIGHT 190CM 190CM was inserted via Radial (right). 9:10:24 HR=84 bpm, NLPM=247/68 mmhg, SpO2=92.0 %, Resp=20 B/min, Pain=0, Justen=10, Avila=2 9:13:19 Interventional wire has crossed the lesion 9:15:18 Activated Clotting Time Drawn 9:15:21 HR=84 bpm, RPGL=140/75 mmhg, SpO2=92.0 %, Resp=19 B/min, Pain=0, Justen=10, Avila=2 A CATHETER, ELCA 0.9MM X-80 150CM was advanced over a wire. OMNIPAQUE, 350 MG, 150ML 150ML was u sed for 9:16:15 injections. 9:18:37 Laser at lesion RCA 9:18:46 Lasering in progress RCA 60/60 9:20:11 ACT (Normal Range 90-180) = 289 9:20:20 HR=78 bpm, IFDG=361/85 mmhg, SpO2=94.0 %, Resp=17 B/min, Pain=0, Justen=10, Avila=2 9:21:05 Lasering in progress at 80/80 RCA 9:21:56 Removing Laser A BALLOON, 3.0 6MM FLEXTOME CUTTING 3.0 6MM was inserted over WIRE, BALANCE MIDDLEWEIGHT 190CM 1 90CM 9:24:33 via the Radial (right). A BALLOON, 3.0 6MM FLEXTOME CUTTING 3.0 6MM over a WIRE, BALANCE MIDDLEWEIGHT 190CM 190CM in the RCA 9:24:39 Mid was inflated using a 30 PEDRO INDEFLATOR at 10 pedro for 20 sec. 9:25:17 HR=76 bpm, LUYH=536/93 mmhg, SpO2=95.0 %, Resp=15 B/min, Pain=0, Justen=10, Avila=2 A BALLOON, 3.0 6MM FLEXTOME CUTTING 3.0 6MM over a WIRE, BALANCE MIDDLEWEIGHT 190CM 190CM in the RCA 9:25:27 Mid was inflated using a 30 PEDRO INDEFLATOR at 10 pedro for 30 sec. 9:27:08 Balloon Removed. A BALLOON, 3.0 X 6MM NC EUPHORA 6MM was inserted over WIRE, BALANCE MIDDLEWEIGHT 190CM 190CM via the 9:27:47 Radial (right). A BALLOON, 3.0 X 6MM NC EUPHORA 6MM over a WIRE, BALANCE MIDDLEWEIGHT 190CM 190CM in the RCA Mid was 9:28:03 inflated using a 30 PEDRO INDEFLATOR at 18 pedro for 30 sec. A BALLOON, 3.0 X 6MM NC EUPHORA 6MM over a WIRE, BALANCE MIDDLEWEIGHT 190CM 190CM in the RCA Mid was 9:28:42 inflated using a 30 PEDRO INDEFLATOR at 18 pedro for 20 sec. 9:29:13 Balloon Removed. 9:30:22 HR=80 bpm, FLQX=847/84 mmhg, SpO2=92.0 %, Resp=15 B/min, Pain=0, Justen=10, Avila=2 9:32:39 BMW Wire removed 9:33:29 Catheter was removed 9:34:19 Case End Assessment: Final Case, HR=86 BPM, Rhythm=sr, HZOO=188/80 mmhg, Chest Pain=0, Edema=None, Color= Normal, Skin = Warm, Dry Right Pulses: Rodney Ped=2, Femoral=2, Radial=2 Left Pulses: Rodney Ped=2, Femoral=2 9:34:29 Lower Right Extremities: Color=Normal Lower Left Extremities: Color=Normal Neurological: State=Alert, Ox3, HAGER Respiration: Resp=15 B/min, SpO2=96 % 9:34:42 Catheter(s) removed without difficulty Radial Compression Device Used. 12 mLs of air placed in BAND, RADIAL COMPRESSION TR SHORT 24 24C M. Affected 9:34:44 hand 96 % O2 saturation. 9:34:50 No case complications noted. 9:34:51 Cine recording checked. 9:34:59 Bedside Report will be given. 9:35:05 A Left Heart Cath was performed. 9:35:27 HR=78 bpm, IKUC=966/76 mmhg, SpO2=94.0 %, Resp=13 B/min, Pain=0, Justen=10, Avila=2 9:43:24 Patient moved to stretcher End Study - Contrast Media Used In Study Contrast Total Opened (mL) Total Used (mL) Total Wasted (mL) Omnipaque 100 100 0 End Study - Maximum Contrast Load Max Contrast Load (mL) 454.5 End Study - Radiation Exposure Fluoro Time (minutes) 14.8 End Study - Sheaths Sheaths Pulled By Sheath Hold Time (min) Gideon Schmidt End Study - Patient Disposition Complications Transferred To Interventional Outcome No Telemetry Bed No attempt made
[2017-09-25] MEDS ORDERED: MORPHINE SULFATE 2 MG/ML SYRINGE IV PUSH PRN (10:00)
[2017-09-25] MEDS ORDERED: MISC INFORMATION XX ONE (10:00)
[2017-09-25] MEDS ORDERED: ACETAMINOPHEN 325 MG TAB PO PRN (10:00)
[2017-09-25] MEDS ORDERED: oxyCODONE/ACETAMINOPHEN 10 MG/325 MG TAB PO PRN (10:00)
[2017-09-25] MEDS ORDERED: oxyCODONE/ACETAMINOPHEN 5 MG/325 MG TAB PO PRN (10:00)
[2017-09-25] MEDS ORDERED: METO25TA3 PO (10:12)
[2017-09-25] MEDS ORDERED: SIMV20TA PO (10:12)
--- NOTE | 2017-09-25 21:04 | EKG ---
Date Performed: 09/25/2017 Time Performed: 07:27:34 PTAGE: 71 years EKG: Sinus rhythm . Normal ECG PREVIOUS TRACING : 03/13/2017 08.38 DOCTOR: Suhas Fernandez Interpretating Date/Time 09/25/2017 21:02:51
--- NOTE | 2017-09-26 00:39 | MA ---
cc: Jesse Gonzalez DO DATE: 09/25/2017 DATE OF PROCEDURE: 09/25/2017 PROCEDURE: Left heart catheterization, coronary angiogram, laser arthrectomy/cutting balloon/MAI in-stent restenosis of RCA. PREPROCEDURE DIAGNOSIS: Unstable angina, abnormal stress test. POSTPROCEDURE DIAGNOSIS: In-stent restenosis of right coronary artery, status post laser atherectomy/cutting balloon/balloon angioplasty. MEDICATIONS: Versed 0.5 mg, fentanyl 25 mcg, heparin 3600 units, nitro 200 mcg, verapamil 2.5 mg, heparin 9000 units. CONTRAST USED: 100 mL FLUOROSCOPY: 14.8 minutes. MODERATE SEDATION: 50 minutes. FRAILTY SCORE: 2. ESTIMATED BLOOD LOSS: 10 mL PROCEDURAL SUMMARY: Adi Corral is a pleasant 71-year-old male who sees my partner, Dr. Branch, in the office and was having chest pain, so he underwent stress testing which showed inferior lateral ischemia, and so he was recommended cardiac catheterization. Risks, benefits and alternatives were explained to him and he consented to such. He was brought to the lab and prepped in the usual sterile fashion. The right radial artery was accessed using a modified Seldinger technique and placement of a 5/6 Latvian slender sheath. This was easily aspirated and flushed. A JR4 was advanced over a J-wire to the ascending aorta and across the aortic valve for measurement of left ventricular pressure. This was pulled back across the aortic valve, showing no significant gradient of aortic stenosis. The JR4 was used for selective angiography of the right coronary artery system. This was exchanged out for a JL3.5, which was used for selective angiography of the left coronary artery system. Please see notes below for intervention. FINDINGS: Left main: Normal size vessel with 10% disease. It trifurcates into an LAD, circumflex, and ramus. LAD: Normal size vessel with 20% disease throughout the proximal portion. In the mid portion distal to the first diagonal, there is a 50% lesion. Ramus: Overall small vessel at 1.5 mm with 99% lesion. Left circumflex: Normal size vessel with mild luminal irregularities. It gives off 2 small obtuse marginals before the major obtuse marginal, which has an upper and lower branch and no significant disease. There are some small collaterals noted to a PLB from the circumflex. RCA: Normal size vessel with a 95% in-stent restenosis. Distally it supplies the PDA as well as a PLB without any disease, and the second PLB has a 99% stenosis with competitive flow noted distally. LVEDP is 7. INTERVENTION: Because of the patient's significant disease in his RCA with inferolateral ischemia on his stress test, I decided to intervene on his RCA. I attempted to engage a JR4 guide, but due to tortuosity up above, this ended up kinking, and so this was removed and a 3DRC guide was used. A BMW wire was advanced into the distal portion of the RCA. A laser atherectomy catheter was used at 60/60 and 80/80 for 3 runs. This was removed and a Flextome cutting balloon (3 x 6) was then inflated over the lesion. This was then removed and a noncompliant balloon (3 x 6) was then used over the lesion. Final angiogram shows a well-opposed stent with no perforations or dissections. INTERVENTIONAL DATA: Vessel: RCA. Lesion length: 6. PreTIMI: 3. Post-LILIANE: 3. Post-stenosis: 10%. IMPRESSIONS: 1. Unstable angina, status post laser atherectomy/cutting balloon/balloon angioplasty of in-stent restenosis of right coronary artery (RCA). 2. Coronary artery disease. RECOMMENDATIONS: 1. Mr. Corral underwent PCI as above, and he will be continued on his aspirin and Plavix therapy. 2. There is further confusion about his medicines and he believes that he is on Zocor with an unknown dose, and we will continue this. 3. He will also continue on his losartan. 4. He previously was on metoprolol tartrate and this was stopped, as it was felt it was not needed, but this will be restarted at 12.5 mg b.i.d. 5. He will be discharged today and follow up with Dr. Branch as previously scheduled. Thank you for allowing me to see Adi Corral. If there are any questions, please do not hesitate to call. DO CHRIST Mathis/TIA , 12:10 AM , 12:37 AM
[2017-09-26] MEDS ORDERED: ASPIRIN 81 MG CHEW TAB PO SCH (09:00)
[2017-09-26] MEDS ORDERED: CLOPIDOGREL 75 MG TAB PO SCH (09:00)
== END 2017-09-25 15:12 | disposition home or self-care (01) ==
LOC: HDIC 06:46 → HDOC 06:46
PROVIDERS: ATTEND Nuclear Medicine Nuclear Cardiology
DX: T82.855A Stenosis of coronary artery stent, initial encounter (principal); I25.110 Atherosclerotic heart disease of native coronary artery with unstable angina pectoris; E78.5 Hyperlipidemia, unspecified; E78.1 Pure hyperglyceridemia; R53.83 Other fatigue; I10 Essential (primary) hypertension; Z79.82 Long term (current) use of aspirin; Z01.818 Encounter for other preprocedural examination
CPT/HCPCS: 80048; 85002; 85025; 85610; 85730; 92924; 93005; 93454; 99152; 99153; C1725; C1769; C1885; C1887; J1644; J2250; J3010; Q9967